=== PATIENT | female | born 1960 | race Caucasian/White ===

== ENCOUNTER 2018-03-12 16:25 | Emergency (ER) | payer BC ==
[2018-03-12] MEDS ORDERED: traMADol TAB* 50 MG PO ONE ×2 (17:05→20:07)
--- OUTSIDE RECORDS SUMMARY | 2018-03-12 17:16 | XMS REPORT | Continuity of Care Document ---
:1960 External Reference #:[id number] Author Name Estrellita Augustine Care Team Providers Name Role Phone Domenic Brooks MD Primary Care Physician Unavailable Payers Type Date Identification Numbers Payment Provider Subscriber Policy Number: [id number] [employer] Bonnie Lopez PayID: [id number] [address] [address] [place] [address] Advance Directives Description No Information Available Problems Description No Information Family History Date Family Member(s) Problem(s) Comments General Lung Cancer Siblings 1 Social History Type Date Description Comments Sex Unknown Marital Status Lives With Occupation Currently Working Occupational Therapist ETOH Use Occasionally consumes alcohol Tobacco Use Start: Unknown Patient is a former End: Unknown smoker Recreational Drug Use Denies Drug Use Smoking Status Reviewed: 02/17/18 Patient is a former smoker Exercise Type/Frequency Exercises regularly Allergies, Adverse Reactions, Alerts Description No Known Drug Allergies Medications Medication Date Status Form Strength Qnty SIG Indications Ordering Provider Levothyroxine Sodium 00/00 Active Tablets 88mcg Take 1 Unknown /0000 Tablet By Mouth Every Day Hydrochlorothiazide 00/00 Active Tablets 25mg Take 1 Unknown /0000 Tablet By Mouth Every Day Lisinopril 00/00 Active Tablets 10mg Take 1 Unknown /0000 Tablet By Mouth Every Day Olopatadine HCL 00/00 Active Solution 0.2% Instill Unknown /0000 1 Drop In Each Eye Every Day Immunizations Description No Information Available Vital Signs Date Vital Result Comment 02/17/2018 3:37pm Height 63 inches 5'3" Weight 128.00 lb BP Systolic Sitting 100 mmHg BP Diastolic Sitting 70 mmHg Pain Level 4 BMI (Body Mass Index) 22.7 kg/m2 Results Description No Information Available Procedures Description No Information Available Encounters Description No Information Available Plan of Treatment 02/17/2018 - DESMOND Parker-[id number] Spondylolysis, cervical regionNew Therapy: Physical TherapyFollow up:With PCP
[2018-03-12 21:44] VITALS: BP 126/74
--- NOTE | 2018-03-13 07:26 | ED ---
Upper Extremity Pain - HPI Summary HPI Summary: Patient is a 57-year-old female presenting to the ED after a FOOSH injury to the left wrist. Endorses pain of 6/10, deformity and slight ecchymosis to the volar side. Limitations with range of motion of flexion and extension and rotation. Denies any other injuries. Endorses numbness and tingling to the index and middle finger. Denies any pain to the forearm, humerus or shoulder. Denies hitting her head or LOC. She has never injured the wrist in the past denies any blood thinners. - History of Current Complaint Chief Complaint: EDExtremityUpper Stated Complaint: LEFT WRIST INJURY Time Seen by Provider: 03/12/18 16:58 Hx Obtained From: Patient Mechanism Of Injury: Fall From A Standing Position Onset/Duration: Started Hours Ago Timing: Constant Severity Initially: Moderate Severity Currently: Moderate Character: Aching Aggravating Factor(s): Movement, Lifting, Flexion, Extension Alleviating Factor(s): Rest, Ice Associated Signs & Symptoms: Positive: Swelling, Bruising, Numbness/Tingling. Negative: Redness Related History: Dominant Hand Right - Risk Factors Non-Orthopedic Risk Factor: Negative DVT Risk Factors: Negative Septic Arthritis Risk Factor: Negative Compartment Syndrome Risk Factors: Pain, Paresthesias - Allergies/Home Medications Allergies/Adverse Reactions: Allergies Allergy/AdvReac Type Severity Reaction Status Date / Time No Known Allergies Allergy Verified 03/12/18 16:54 PMH/Surg Hx/FS Hx/Imm Hx Previously Healthy: Yes Endocrine/Hematology History: Reports: Hx Thyroid Disease Denies: Hx Diabetes Cardiovascular History: Reports: Hx Hypertension Denies: Hx Pacemaker/ICD History: Denies: Hx Renal Disease Musculoskeletal History: Denies: Hx Rheumatoid Arthritis, Hx Osteoporosis, Hx Scoliosis Sensory History: Denies: Hx Hearing Aid Neurological History: Denies: Hx Headaches, Other Neuro Impairments/Disorders Psychiatric History: Denies: Hx Panic Disorder - Cancer History Hx Chemotherapy: No Hx Radiation Therapy: No - Surgical History Surgery Procedure, Year, and Place: [facility] Infectious Disease History: No Infectious Disease History: Denies: History Other Infectious Disease, Traveled Outside the [place] in Last 30 Days - Social History Occupation: Employed Full-time Lives: With Family Alcohol Use: None Hx Substance Use: No Substance Use Type: Reports: None Hx Tobacco Use: No Smoking Status (MU): Never Smoked Tobacco Review of Systems Constitutional: Negative Negative: Fever, Chills, Fatigue, Skin Diaphoresis Negative: Palpitations, Chest Pain Negative: Shortness Of Breath, Cough Genitourinary: Negative Positive: no symptoms reported, see HPI Positive: Arthralgia - left wrist pain with deformity Positive: Bruising Neurological: Negative All Other Systems Reviewed And Are Negative: Yes Physical Exam Triage Information Reviewed: Yes Vital Signs On Initial Exam: Initial Vitals Temp Pulse Resp BP Pulse Ox 97.7 F 77 16 138/77 100 03/12/18 16:52 03/12/18 16:52 03/12/18 16:52 03/12/18 16:52 03/12/18 16:52 Vital Signs Reviewed: Yes Appearance: Positive: Well-Appearing, Well-Nourished Skin: Positive: Warm, Skin Color Reflects Adequate Perfusion, Other - dorsal wrist pain with ecchymosis to the volar side Neck: Positive: Supple, No Lymphadenopathy Respiratory/Lung Sounds: Positive: Clear to Auscultation, Breath Sounds Present Cardiovascular: Positive: RRR, Pulses are Symmetrical in both Upper and Lower Extremities Musculoskeletal: Positive: Pain @ - left wrist pain Neurological: Positive: Speech Normal Psychiatric: Positive: Affect/Mood Appropriate AVPU Assessment: Alert Diagnostics - Vital Signs Vital Signs Temp Pulse Resp BP Pulse Ox 03/12/18 20:55 98.4 F 86 20 126/74 99 03/12/18 19:40 98.4 F 88 20 134/71 98 03/12/18 16:52 97.7 F 77 16 138/77 100 - Laboratory Lab Statement: Any lab studies that have been ordered have been reviewed, and results considered in the medical decision making process. Course/Dx - Course Course Of Treatment: Physical exam physical examination shows deformity to the wrist. Ecchymosis to the volar plate. Hematoma block obtained with good effect. After first attempt at reduction without success, Dr. Gant was called for assist. After second attempt in traction, the wrist was reduced with slight angulation by Dr. Gant. Sugar tong splint applied. Tramadol 100mg total given in ED. Patient will follow up with Dr. Gant. - Diagnoses Differential Diagnosis/HQI/PQRI: Positive: Fracture (Open), Fracture (Closed), Strain, Sprain Provider Diagnoses: Radius distal fracture Discharge - Sign-Out/Discharge Documenting (check all that apply): Patient Departure - Discharge Plan Condition: Stable Disposition: HOME Prescriptions: traMADol TAB* [Ultram*] 50 mg PO Q8H PRN #6 tab MDD 3 PRN Reason: Pain Patient Education Materials: Wrist Fracture in Adults (ED) Referrals: Domenic Brooks MD [Primary Care Provider] - Jayce Gant MD [Medical Doctor] - - Billing Disposition and Condition Condition: STABLE Disposition: Home
--- NOTE | 2018-03-14 00:17 | CONS ---
CONSULTATION REPORT: DATE OF CONSULTATION: 03/12/18 REASON FOR CONSULTATION: Left wrist fracture. HISTORY OF PRESENT ILLNESS: The patient is a 57-year-old woman, right hand dominant, who works at the [employer] in [place], [place], who presented in emergency department at [facility] on 03/12/18 after sustaining a left wrist injury. The patient slipped and fell and had significant pain and swelling about the left wrist. The patient was brought to the emergency room. ER staff detected a very displaced left distal radius fracture. Treatment was commenced by ER staff. They performed a hematoma block and a closed reduction. They then placed a splint on. ER staff felt that the reduction was likely imperfect or lost with the splinting. The patient then described some numbness or tingling in the fingers of the left hand that worried ER staff. Orthopedic Surgery consult was called. The patient described some numbness and tingling in all fingers of the left hand , but worst in the small finger. The patient is in the emergency department with her and her stepdaughter. The patient had planned a large libertarian that she was going to host this evening of this injury. No other joint pain. No other injury sustained with the fall. PAST MEDICAL HISTORY: 1. Thyroid disease. 2. Hypertension. MEDICATIONS: No medications at home. ALLERGIES: No known drug allergies. SOCIAL HISTORY: The patient lives with her locally. Right hand dominant, employed at the [employer] in [place]. REVIEW OF SYSTEMS: No headache, nausea or vomiting, chest pain, heart palpitations, shortness of breath, numbness. No other joint pain. The patient does have some numbness and tingling, more tingling than numbness, of all fingertips, worst in the small finger, which is the one finger that she has more numbness than tingling. PHYSICAL EXAM: On exam, no acute distress. Alert and oriented, appropriate mood and affect. Appropriate dress and hygiene. Well coordinated bilateral upper and lower extremities. When I approached the patient, she was in bay in the emergency department. The patient was in a fingertrap suspension traction, left upper extremity. This was placed by ER staff at my direction. The patient had already had a second hematoma block placed. She was hanging from finger traps. Per report, this had improved the deformity visible at the wrist. I palpated the wrist area and felt a clear distal radius fracture and that I could improve the appearance of the deformity with manipulation. No significant pain with manipulation about the distal radius. The patient's fingers appeared well perfused. Intact radial artery pulse. The patient had intact but decreased sensation at the finger tips , all of them appeared closer to the base of the fingers in the area of the metacarpals. The patient had sensation intact both laterally and dorsally. Warm, well perfused. Vital signs stable. DIAGNOSTIC STUDIES: Imaging: I first visualized 2 sets of x-rays, each were a series of 3 x-rays. One was taken at presentation and the other was taken after the first reduction maneuver performed by ED staff. They showed similar findings. There is an extraarticular transverse distal radius fracture. It is in the metaphysis, but slightly distal as these fractures come. There is a significant amount of comminution. There is significant volar apex angulation, bringing the distal fragment dorsally. The deformity was quite significant given the significant angulation at the apex. As well, there is significant shortening of the distal radius versus ulna caused by this angular deformity. There is significant loss of radial inclination and there is a very significant dorsal tilt. ASSESSMENT: Left distal radius fracture, extraarticular, severely deformed with a dorsal tilt and loss of radial inclination, comminution. PLAN: 1. The first reduction maneuver did not improve the reduction of the fracture. This is a complex, very unstable fracture, so it is not surprising. 2. The numbness and tingling were not significantly worrisome to me. I reassured the patient. The numbness and tingling could be caused by a variety of factors including the significant inflammation of the soft tissue caused by this injury, the hematoma block or the longitudinal finger trap traction. 3. Given that the distribution is not limited to that of the median nerve, the symptoms are not significantly worsening, I am not worried about a traumatic carpal tunnel syndrome. 4. I provided some education to the patient and her family regarding the anatomy of this fracture and injury. 5. Procedure: I performed a closed reduction of this distal radius fracture and then applied a sugar-tong forearm splint. I did this because if the bone were to stay as it was currently positioned, the patient would likely have significant pain and significant soft tissue swelling that would make her more uncomfortable and symptomatic preoperatively. Might also make surgery more difficult. The patient had already had a hematoma block, second one performed by ER staff and it was working well. I performed a standard reduction maneuver of the distal radius. That and the longitudinal traction appeared to reduce the distal radius well. I next applied a sugar-tong forearm splint with a 1 step type of fiberglass. I put in excellent 3-point mold on the splint. I then kept the patient in the finger trap traction for at least 10 minutes until the fiberglass was fully hardened. 6. We obtained x-rays after the reduction procedure and splint had been performed. This showed significant improvement in distal radius. While the radial inclination was still flattened, I re-obtained length of the distal radius. There was really only several degrees of loss of volar tilt. The distal fragment is displaced volarly, but not angulated. Significant improvement in reduction that I was happy with. There is a distal radius extra- articular fracture with comminution. 7. I explained to the patient and her that given the current reduction , I recommend surgical management. I described technical aspects of surgery, open reduction and internal fixation of the distal radius with a volar locking plate. 8. The patient will follow up with me in clinic on the morning of Thursday, 03/15. This will be for a history and physical for a planned surgical procedure that I would perform either on 03/17/18 or 03/19/18. 9. I told the patient to take Tylenol or narcotics as needed for pain control and to stay away from NSAIDs or aspirin to minimize any bleeding risks. I told her to elevate that left hand and to use a sling as needed. The patient removed her ring in the emergency department prior to meeting me. [id number]/[facility] #: [id number] DUY
== END 2018-03-12 20:55 | disposition home or self-care (01) ==
LOC: ED 16:25
DX: S52.502A Unspecified fracture of the lower end of left radius, initial encounter for closed fracture (principal); W19.XXXA Unspecified fall, initial encounter; Y92.9 Unspecified place or not applicable; R60.0 Localized edema
CPT/HCPCS: 99282; A9270-GY

== ENCOUNTER → 2018-03-17 10:40 | Day surgery (SDC) | payer BC ==
[~2018-03-17 10:40] MED LIST: Acetaminophen TAB* 325 MG PO PRN; Buffered Lidocaine 0.9% SYRIN* 5 ML/SYR SYRINGE INTRADERM ONE; Bupivacaine 0.5% W/EPI SDV* 30 ML VIAL ONE; Dexamethasone TAB* 4 MG ONE; Dexamethasone TAB* 4 MG PO ONE; DiMENhydriNATE IV* 50 MG/ML VIAL IV PUSH PRN; Famotidine IV* 10 MG/ML 2 ML (20 mg) IV ONE; Famotidine IV* 10 MG/ML 2 ML (20 mg) ONE; HYDROcodone/ACETAMIN 5-325 MG* 1 TAB ONE; HYDROcodone/ACETAMIN 5-325 MG* 1 TAB PO PRN; Ketorolac INJ* 30 MG/ML 1 ML VIAL IV PRN; Ketorolac INJ* 30 MG/ML 1 ML VIAL ONE; Lactated Ringers 1000 ML Bag* 1,000 ML IV SCH; Lidocaine 2% PF * 5 ML VIAL ONE; Midazolam* 1 MG/ML 2 ML VIAL (2 MG) ONE; Morphine VIAL* 4 MG/ML VIAL (1 ml vial) IV PRN; Naloxone* 0.4 MG/ML 1 ML VIAL IV PRN; Ondansetron INJ* 2 MG/ML VIAL ONE; PROCHLORPERAZINE INJ 5 MG/ML 2 ML VIAL IV PRN; Propofol* 10 MG/ML 20 ML BTL ONE; ceFAZolin 2 GM PREMIX in ORs 2 GM/50 ML BAG IVPB ONE; fentaNYL* 50 MCG/ML 2 ML VIAL (100 MCG VIAL) ONE; fentaNYL* 50 MCG/ML 5 ML VIAL (250 MCG VIAL) ONE
[2018-03-17] MEDS: fentaNYL* 50 MCG/ML 2 ML VIAL (100 MCG VIAL) IV PRN ×2 (14:36→14:48)
[2018-03-17 15:52] VITALS: BP 126/80
--- NOTE | 2018-03-21 01:37 | OP ---
OPERATIVE REPORT: DATE OF OPERATION: 03/17/18 DATE OF : 58 SURGEON: Dr. Jayce Gant. MACHINE ZIPPER TRIMMER: DESMOND Antony. A physician assistant professor of nursing was required for the length of the procedure for assistance with positioning, r etraction, closure. ANESTHESIOLOGIST: Dr. Hadley Altamirano. ANESTHESIA: General anesthesia. PRE-OP DIAGNOSIS: Left wrist distal radius fracture. POST-OP DIAGNOSIS: Left wrist distal radius fracture. OPERATIVE PROCEDURE: Open reduction and internal fixation, left distal radius fracture, intraarticul ar, with 3 or more fragments. IV FLUIDS: 1000 cc crystalloid. ANTIBIOTICS: Ancef 2 g IV. TOURNIQUET TIME: 92 minutes at 250 mmHg. RBWW-[id number]-RCWV TIME: 86 minutes. SPECIMEN: None. IMPLANTS: Synthes volar distal radius locking plate, left, polyaxial, 2.4 mm. All screws placed wer e 2.4 mm. All but one were locking. I did have 1 nonlocking screw placed proximally. This was a 3- hole plate, regular width. RADIATION TIME: 91 seconds. RADIATION EXPOSURE: Mini C-arm was utilized, 33.39 mGy. ESTIMATED BLOOD LOSS: Minimal. COMPLICATIONS: None. 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 The patient had a significantly displaced, comminuted left distal radius fracture. Red uction was attempted in the emergency department by ER staff. This failed. I then saw the patient a nd reduced the patient's distal radius. This significantly improved the reduction, but it still show ed a poor volar tilt, radial inclination, and overall alignment indicating surgery was required. Pre operative imaging showed it to be extraarticular, but in multiple pieces. Intraoperatively, I noted that along the radial aspect of the most distal fragment there was comminution that extended intraart icular. I discussed the risks and potential complications with the patient. DESCRIPTION OF PROCEDURE: The patient signed written consent in preoperative holding. Operative ext remity was marked in the preoperative holding. The patient was taken back to the operating room and placed supine on the operating room table. Sedated and intubated. Hand table was applied to the tabl e. Tourniquet was placed about the left upper arm. The left upper extremity was prepped and draped. Surgical time-out was performed. Tourniquet was elevated. A 7 cm longitudinal skin incision made for the volar approach to the distal radius. I released the fl exor carpi radialis sheath superficial and deep to the FCR. Retracted FCR. Retracted FPL. Released pronator quadratus off the radial edge of the distal radius. Exposed the fracture site. I debrided and irrigated. I used my hand to reduce the fracture. Noted multiple fragments of comminution, especially along the radial border of the fracture. Attempted provisional reduction and fixation with K-wires. I placed 2 through the radial styloid. T his held the fracture mostly reduced, but not perfectly reduced. I next sized the bone to be appropriate for a standard width plate. I picked a 3- hole standard widt h plate. I reduced the plate with 2 K-wires. I changed the location of the plate several times. I next placed a nonlocking 2.4 mm screw in the oval hole proximally. I then removed the K-wires that h ad been placed through the radial styloid. I obtained what I thought to be anatomic perfect reductio n. I next replaced my K-wire distally through the plate and went about sewing the plate distally wit h locking screws. I drilled and placed several locking 2.4 mm screws distally. I next obtained new images with the mini C-arm that showed near-anatomic or anatomic reduction of the bone with excellent placement of the plate. I subsequently filled in the screw holes both proximally and distally with 2.4 mm locking screws. I confirmed appropriate screw lengths and positioned with mini C- arm imaging. Irrigation. I closed t he FCR subsheath to the pronator quadratus with [id number] stitches using Vicryl 2-0 suture. I closed the subcutaneous layer with buried simple stitches using Vicryl 3-0 suture. Closure of the sk in with running stitch using nylon 4-0 suture. Xeroform, 4x4s, sterile Webril. Volar splint was piero phylicia. It was overwrapped with an Dion bandage. DISPOSITION: The patient was awakened, extubated, and taken to the PACU. The patient was discharged home when medically stable. The patient was to receive Percocet as needed for pain control and Kefl ex x3 days for infection prophylaxis. She will keep the volar splint in place. The patient will foll ow up with me in 7 to 10 days postoperatively. Given the stability of the fracture post fixation, I will likely convert the patient to just a removable wrist brace at that time, unless the patient pref ers a cast temporarily. [id number]/[facility] #: [id number]
== END | disposition home or self-care (01) ==
LOC: OR 10:40
PROVIDERS: ATTEND Orthopaedic Surgery
DX: S52.572A Other intraarticular fracture of lower end of left radius, initial encounter for closed fracture (principal); V00.218A Other ice-skates accident, initial encounter; Y93.21 Activity, ice skating; Y92.330 Ice skating rink (indoor) (outdoor) as the place of occurrence of the external cause; I10 Essential (primary) hypertension; E03.9 Hypothyroidism, unspecified; M47.812 Spondylosis without myelopathy or radiculopathy, cervical region
CPT/HCPCS: 76000; C1713; C1776; J0690; J1885; J2250; J2405; J2704; J3010; J8540